=== PATIENT | male | born 1995 | race Caucasian/White ===

== ENCOUNTER → 2017-09-05 | Outpatient (CLI) | payer BC | LOC: YCFC.O 11:33 | PROVIDERS: ATTEND Nurse Practitioner Family | DX: Z11.3 Encounter for screening for infections with a predominantly sexual mode of transmission (principal); N39.0 Urinary tract infection, site not specified ==

== ENCOUNTER 2018-05-24 13:44 | Emergency (ER) | payer SELFPAY ==
[2018-05-24 13:55] VITALS: BP 125/70; TEMP 97.2; O2SAT 96
[2018-05-24] MEDS ORDERED: AZITHROMYCIN 250 MG TAB PO ONE (14:02)
--- NOTE | 2018-05-24 14:06 | ED.PDOC ---
History of Present Illness - General Chief Complaint: Problem Stated Complaint: burning with urination,discharge Time Seen by Provider: 05/24/18 14:02 Source: patient Exam Limitations: no limitations - History of Present Illness Initial Comments: patient comes in today with day history of burning with urination and urethral discharge. Patient has had this happen once before when he had gonorrhea. He does admit to having unprotected sex. Last HIV test was 6 months ago when he had the episode of gonorrhea. Otherwise he is always been healthy with no past medical history and no history of urinary tract infections. Patient has no known drug allergies and currently feels well. He denies any systemic symptoms. Timing/Duration: yesterday Quality: moderate Onset Location: urethral Radiation: none Activites at Onset: none Prior abdominal problems: similar symptoms Sexual intercourse history: less than 2 months ago, multiple partners Improving Factors: nothing Worsening Factors: nothing Allergies/Adverse Reactions: Allergies NO KNOWN ALLERGY Allergy (Verified 05/24/18 13:55) Home Medications: Ambulatory Orders NK [NK] 05/24/18 Review of Systems - Review of Systems Constitutional: States: no symptoms reported. Denies: chills, fever EENTM: States: no symptoms reported Respiratory: States: no symptoms reported. Denies: cough, short of breath, wheezing Cardiology: States: no symptoms reported. Denies: chest pain Gastrointestinal/Abdominal: States: no symptoms reported Genitourinary: States: see HPI Past Medical History (General) - Patient Medical History Hx Stroke: No Hx Congestive Heart Failure: No Hx Diabetes: No - Vaccination History Hx Influenza Vaccination: No - Social History Hx Tobacco Use: No - Uses E-cigs Family Medical History - Family History Father Family History: Unknown Living Status: Unknown Physical Exam - Physical Exam General Appearance: Alert, No apparent distress Eyes, Ears, Nose, Throat Exam: PERRL/EOMI Neck: non-tender, full range of motion, supple Cardiovascular/Respiratory: regular rate, rhythm, no M/R/G, normal peripheral pulses Gastrointestinal/Abdominal: normal bowel sounds, non tender, soft, no organomegaly Progress - Progress Progress: explained to patient the testing does take up to a week as it is a send out on labs. We'll go ahead and treat for suspected STD with Rocephin and Zithromax. He should follow up with his PCP in one to 2 weeks. We have offered to test him for HIV while he is here but he states secondary to cost he will wait a minute [facility]. He does understand he should also be tested for hepatitis and safe sex practices are needed. 05/24/18 14:06 Departure - Departure Clinical Impression: Sexually transmitted disease Disposition: Discharge to Home or Self Care Condition: Good Departure Forms: ED Discharge - Pt. Copy, Patient Portal Self Enrollment Home Medications: Ambulatory Orders NK [NK] 05/24/18 Additional Instructions: follow up with PCP for further STD checks and to verify results.
[2018-05-24] MEDS ORDERED: LIDOCAINE 1% 10 ML VIAL INJ ONE (14:10)
== END 2018-05-24 14:39 | disposition home or self-care (01) ==
LOC: ER 13:44
DX: A64 Unspecified sexually transmitted disease (principal); Z86.19 Personal history of other infectious and parasitic diseases; F17.290 Nicotine dependence, other tobacco product, uncomplicated
CPT/HCPCS: 81001; 87086; 87491; 87591; J0696; Q0144